=== PATIENT | male | born 1960 | race Caucasian/White ===

== ENCOUNTER → 2018-07-30 | Outpatient (CLI) | payer OTHER ==
--- NOTE | 2018-07-30 13:54 | PCVCIMAG ---
APPROVED REPORT Study performed: 07/30/2018 13:04:30 EXAM: Comprehensive 2D, Doppler, and color-flow Echocardiogram Patient Location: Echo lab Room #: 2Status: routine BSA: 2.44 HR: 72 bpmBP: 184/112 mmHg Rhythm: LBBB Other Information Study Quality: Adequate Risk Factors: Cardiac Risk Factors: HTN Indications Abnormal ECG Cardiomyopathy Hypertension/HDD LBBB, Nonischemic CM 2D Dimensions IVSd: 13.47 (7-11mm)LVOT Diam: 25.55 (18-24mm) LVDd: 57.10 mm PWd: 11.07 (7-11mm)Ascending Ao: 33.94 (22-36mm) LVDs: 43.13 (25-40mm) Left Atrium: 40.66 (27-40mm) Aortic Root: 32.12 mm LV Single Plane 4CH: 38.78 % LV Single Plane 2CH: 44.24 % Biplane EF: 42.7 % Volumes Left Atrial Volume (Systole) Single Plane 4CH: 99.06 mLSingle Plane 2CH: 86.14 mL Biplane LA Volume: 95.00 mLLA ESV Index: 39.00 mL/m2 Aortic Valve AoV Peak Raul.: 1.43 m/s AO Peak Gr.: 8.31 mmHgLVOT Max P.88 mmHg LVOT Max V: 0.97 m/s NAKITA Vmax: 3.49 cm2 Mitral Valve E/A Ratio: 1.0 MV Decel. Time: 226.36 ms MV E Max Raul.: 0.99 m/s MV A Raul.: 1.02 m/s IVRT: 114.19 ms TDI E/Lateral E': 14.14E/Medial E': 19.80 Medial E' Raul.: 0.05 m/s Lateral E' Raul.: 0.07 m/s Pulmonary Valve PV Peak Raul.: 1.06 m/sPV Peak Gr.: 4.49 mmHg Pulmonary Vein P Vein S: 0.70 m/sP Vein A: 0.21 m/s P Vein D: 0.43 m/sP Vein A Dur.: 76.1 msec P Vein S/D Ratio: 1.63 Tricuspid Valve TR Peak Raul.: 2.57 m/s TR Peak Gr.: 26.34 mmHg TV Vmax: 0.59 m/sPA Pressure: 33.00 mmHg Left Ventricle The left ventricle is normal size. Paradoxical septal motion consistent with conduction abnormality. Mild concentric left ventricular hypertrophy. Left ventricular systolic function is mild to moderately decreased. LVEF is 40-45%. Findings suggest the left atrial pressure is elevated. Right Ventricle The right ventricle is normal size. The right ventricular systolic function is normal. Atria Left atrium is mildly dilated. The right atrium size is normal. Aortic Valve Aortic valve is trileaflet. The aortic valve is normal in structure and function. No aortic regurgitation is present. There is no aortic valvular stenosis. Mitral Valve The mitral valve is normal in structure. Trace to mild mitral regurgitation. No evidence of mitral valve stenosis. Tricuspid Valve The tricuspid valve is normal in structure. Trace to mild tricuspid regurgitation with a PA pressure of 33 mmHg. Mild pulmonary hypertension. Pulmonic Valve The pulmonary valve is normal in structure. There is no pulmonic valvular regurgitation. Great Vessels The aortic root is normal in size. The ascending aorta is normal in size. Aortic arch is normal in caliber. IVC is normal in size and collapses >50% with inspiration. Pericardium There is no pericardial effusion. There is no pleural effusion. <Conclusion> The left ventricle is normal size. Mild concentric left ventricular hypertrophy. Left ventricular systolic function is mild to moderately decreased. The right ventricle is normal size. Left atrium is mildly dilated. The aortic valve is normal in structure and function. Trace to mild mitral regurgitation. Trace to mild tricuspid regurgitation with a PA pressure of 33 mmHg. Mild pulmonary hypertension.
== END | disposition home or self-care (01) ==
LOC: PCVCIMAG 12:40
PROVIDERS: ATTEND Internal Medicine Cardiovascular Disease
DX: I08.1 Rheumatic disorders of both mitral and tricuspid valves (principal); R94.31 Abnormal electrocardiogram [ECG] [EKG]; I42.9 Cardiomyopathy, unspecified; I10 Essential (primary) hypertension; I44.7 Left bundle-branch block, unspecified; J45.20 Mild intermittent asthma, uncomplicated; I47.1 Supraventricular tachycardia; I27.20 Pulmonary hypertension, unspecified
CPT/HCPCS: 93306